=== PATIENT | male | born 1945 | race Caucasian/White ===

== ENCOUNTER → 2021-11-17 | Outpatient (CLI) | payer MEDICARE, BC ==
[~2021-11-17] MED LIST: CARTIA XT240 MG PO; FINASTERIDE5 MG PO; FLOMAX 0.4 MG0.4 MG PO; GLUCOPHAGE 500500 MG PO; GLUCOPHAGE 850850 MG PO; LISINOPRIL-HCT1 EAC1 PO; LISINOPRIL20 MG PO; NEURONTIN 300300 MG PO; NORCO 7.5-3251 EACH PO; OMEPRAZOLE20 MG PO; PIOGLITAZONE HC45 MG PO; VITAMIN D50000 UNIT PO
== END ==
LOC: HEART CORB 13:53
DX: I10 Essential (primary) hypertension (principal); I48.19 Other persistent atrial fibrillation; I27.20 Pulmonary hypertension, unspecified; I08.1 Rheumatic disorders of both mitral and tricuspid valves
CPT/HCPCS: 93306